=== PATIENT | female | born 1950 | race Caucasian/White ===

== ENCOUNTER 2017-01-18 15:10 | Emergency (ER) | payer OTHER, MEDICARE, BC ==
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
[2017-01-18] MEDS ORDERED: Iopamidol 612 MG/ML 150 ML Bottle IVPUSH ONE (15:55)
[2017-01-18] MEDS ORDERED: Sodium Chloride 0.9% 10 ML Syringe FLUSH PRN (15:55)
[2017-01-18] MEDS ORDERED: Sodium Chloride 0.9% 100 ML IV SCH (16:00)
[2017-01-18 16:39] VITALS: BP 163/90
--- NOTE | 2017-01-18 16:46 | CT ---
CT chest Technique: Multiple axial sections were obtained from above the lung apices inferiorly through the lung bases. Intravenous contrast was utilized. Reconstructed coronal and sagittal images were reviewed. Findings: Mediastinum and hilar regions are unremarkable. Opacified aorta and pulmonary vessels are within normal limits. No pericardial effusion is seen. Small hiatal hernia is seen. Nodule identified within the right middle lobe measuring approximately 1.8 cm in size. This nodule contains some negative Hounsfield unit measurements indicating fat. The presence of fat indicates this is most likely due to a hamartoma. No calcifications are seen within this nodule. Lungs otherwise are clear. No pulmonary contusion, pleural effusion or pneumothorax is seen. Bone window settings were reviewed which shows no acute rib fracture. No compression deformities are seen within the thoracic spine. Lateral view shows the sternum to be intact. Impression: 1. Nodule within the right middle lobe containing fat most likely representing incidental hamartoma. 2. Small hiatal hernia. 3. Nothing acute is seen on CT study of the chest. Diagnostic code #2 CT abdomen and pelvis Technique: Multiple axial sections were obtained from above the dome of the diaphragm inferiorly through the pubic symphysis. Intravenous contrast was utilized. No oral contrast has been given. Findings: Liver shows no focal abnormality. Small layering gallstones are seen within the gallbladder. Spleen appears within normal limits. Adrenal glands appear unremarkable. Kidneys show symmetric contrast enhancement and appear unremarkable. Pancreas is unremarkable. Aorta shows no aneurysmal dilatation. No retroperitoneal adenopathy or mesenteric abnormalities are seen. No pelvic mass or adenopathy is seen. No free fluid or inflammatory change is identified within the abdomen or pelvis. Bone window settings were reviewed which shows degenerative change within the spine. No acute bony abnormality is seen within the pelvis or within the hips or within the lumbar spine. Impression: 1. Small layering gallstones. 2. Other incidental findings. 3. No acute abnormality is identified on CT study of the abdomen and pelvis. Diagnostic code #2
--- NOTE | 2017-01-20 19:59 | CR ---
Chest: Portable view of the chest was obtained. Comparison: No prior chest x-ray. Findings: Heart size and mediastinum are within normal limits for portable technique. Lungs are clear. Nodule noted on subsequent chest CT not well seen on chest x-ray. Bony structures are grossly intact. Impression: 1. Nothing acute is appreciated on portable chest x-ray. Diagnostic code #1
== END 2017-01-18 17:39 | disposition home or self-care (01) ==
LOC: JD.ED 15:10
DX: S22.32XA Fracture of one rib, left side, initial encounter for closed fracture (principal); K21.9 Gastro-esophageal reflux disease without esophagitis; V49.50XA Passenger injured in collision with unspecified motor vehicles in traffic accident, initial encounter; W22.12XA Striking against or struck by front passenger side automobile airbag, initial encounter; Z79.899 Other long term (current) drug therapy; Z87.891 Personal history of nicotine dependence
CPT/HCPCS: 36415; 71010; 71260; 74177; 80053; 85025; 99285; J7030; J7050; Q9967